=== PATIENT | male | born 1950 | race Native Hawaiian/Other Pacific Islander ===

== ENCOUNTER 2021-01-28 07:43 | Outpatient (CLI) | payer OTHER ==
[~2021-01-28] VITALS: Ht 177.8 cm; Wt 82.6 kg
== END 2021-01-28 19:27 | disposition home or self-care (01) ==
LOC: DIABINF 07:43
PROVIDERS: ATTEND Internal Medicine Endocrinology, Diabetes & Metabolism
DX: E11.40 Type 2 diabetes mellitus with diabetic neuropathy, unspecified (principal); N52.8 Other male erectile dysfunction; E78.2 Mixed hyperlipidemia; I10 Essential (primary) hypertension; E55.9 Vitamin D deficiency, unspecified; J30.2 Other seasonal allergic rhinitis
CPT/HCPCS: 82948; 96365; 96366; 96521; 99204; J1718; J1815

== ENCOUNTER 2021-01-29 07:33 | Outpatient (CLI) | payer OTHER ==
[~2021-01-29] VITALS: Ht 177.8 cm; Wt 82.6 kg
== END 2021-01-29 21:42 | disposition home or self-care (01) ==
LOC: DIABINF 07:33
PROVIDERS: ATTEND Internal Medicine Endocrinology, Diabetes & Metabolism
DX: E11.40 Type 2 diabetes mellitus with diabetic neuropathy, unspecified (principal); N52.8 Other male erectile dysfunction; E78.2 Mixed hyperlipidemia; I10 Essential (primary) hypertension; E55.9 Vitamin D deficiency, unspecified; J30.2 Other seasonal allergic rhinitis; C44.41 Basal cell carcinoma of skin of scalp and neck
CPT/HCPCS: 82948; 96365; 96366; 96521; 99214; J1718; J1815

== ENCOUNTER 2021-02-04 07:52 | Outpatient (CLI) | payer OTHER ==
[~2021-02-04] VITALS: Ht 177.8 cm; Wt 82.6 kg
== END 2021-02-04 22:03 | disposition home or self-care (01) ==
LOC: DIABINF 07:52
PROVIDERS: ATTEND Internal Medicine Endocrinology, Diabetes & Metabolism
DX: E11.40 Type 2 diabetes mellitus with diabetic neuropathy, unspecified (principal); E11.65 Type 2 diabetes mellitus with hyperglycemia; N52.8 Other male erectile dysfunction; E78.2 Mixed hyperlipidemia; I10 Essential (primary) hypertension; E55.9 Vitamin D deficiency, unspecified; J30.2 Other seasonal allergic rhinitis; C44.41 Basal cell carcinoma of skin of scalp and neck; S81.811D Laceration without foreign body, right lower leg, subsequent encounter
CPT/HCPCS: 82948; 96365; 96366; 96521; 99214; J1718; J1815

== ENCOUNTER 2021-02-05 07:53 | Outpatient (CLI) | payer OTHER ==
[~2021-02-05] VITALS: Ht 177.8 cm; Wt 82.6 kg
== END 2021-02-05 21:46 | disposition home or self-care (01) ==
LOC: DIABINF 07:53
PROVIDERS: ATTEND Internal Medicine Endocrinology, Diabetes & Metabolism
DX: E11.65 Type 2 diabetes mellitus with hyperglycemia (principal); N52.8 Other male erectile dysfunction; E78.2 Mixed hyperlipidemia; I10 Essential (primary) hypertension; E55.9 Vitamin D deficiency, unspecified; J30.2 Other seasonal allergic rhinitis; C44.41 Basal cell carcinoma of skin of scalp and neck; S81.811D Laceration without foreign body, right lower leg, subsequent encounter
CPT/HCPCS: 82948; 96365; 96366; 96521; 99214; J1718; J1815

== ENCOUNTER 2021-02-11 07:48 | Outpatient (CLI) | payer OTHER ==
[~2021-02-11] VITALS: Ht 177.8 cm; Wt 82.6 kg
== END 2021-02-11 21:52 | disposition home or self-care (01) ==
LOC: DIABINF 07:48
PROVIDERS: ATTEND Internal Medicine Endocrinology, Diabetes & Metabolism
DX: E11.40 Type 2 diabetes mellitus with diabetic neuropathy, unspecified (principal); N52.8 Other male erectile dysfunction; E78.2 Mixed hyperlipidemia; I10 Essential (primary) hypertension; E55.9 Vitamin D deficiency, unspecified; J30.2 Other seasonal allergic rhinitis; C44.41 Basal cell carcinoma of skin of scalp and neck; S80.811A Abrasion, right lower leg, initial encounter
CPT/HCPCS: 82948; 96365; 96366; 96521; 99214; J1718; J1815

== ENCOUNTER 2021-02-12 07:46 | Outpatient (CLI) | payer OTHER ==
[~2021-02-12] VITALS: Ht 177.8 cm; Wt 82.6 kg
== END 2021-02-12 19:29 | disposition home or self-care (01) ==
LOC: DIABINF 07:46
PROVIDERS: ATTEND Internal Medicine Endocrinology, Diabetes & Metabolism
DX: E11.21 Type 2 diabetes mellitus with diabetic nephropathy (principal); N52.8 Other male erectile dysfunction; E78.2 Mixed hyperlipidemia; I10 Essential (primary) hypertension; E55.9 Vitamin D deficiency, unspecified; J30.2 Other seasonal allergic rhinitis; C44.41 Basal cell carcinoma of skin of scalp and neck; S80.811A Abrasion, right lower leg, initial encounter
CPT/HCPCS: 82948; 96365; 96366; 96521; 99214; J1718; J1815

== ENCOUNTER 2021-02-19 07:33 | Outpatient (CLI) | payer OTHER ==
[~2021-02-19] VITALS: Ht 177.8 cm; Wt 82.6 kg
== END 2021-02-19 20:22 | disposition home or self-care (01) ==
LOC: DIABINF 07:33
PROVIDERS: ATTEND Internal Medicine Endocrinology, Diabetes & Metabolism
DX: E11.21 Type 2 diabetes mellitus with diabetic nephropathy (principal); N52.8 Other male erectile dysfunction; E78.2 Mixed hyperlipidemia; I10 Essential (primary) hypertension; E55.9 Vitamin D deficiency, unspecified; J30.2 Other seasonal allergic rhinitis; C44.41 Basal cell carcinoma of skin of scalp and neck; S80.811A Abrasion, right lower leg, initial encounter
CPT/HCPCS: 82948; 96365; 96366; 96521; 99214; J1718; J1815

== ENCOUNTER 2021-02-26 07:42 | Outpatient (CLI) | payer OTHER ==
[~2021-02-26] VITALS: Ht 177.8 cm; Wt 82.6 kg
== END 2021-02-26 22:10 | disposition home or self-care (01) ==
LOC: DIABINF 07:42
PROVIDERS: ATTEND Internal Medicine Endocrinology, Diabetes & Metabolism
DX: E11.40 Type 2 diabetes mellitus with diabetic neuropathy, unspecified (principal); N52.8 Other male erectile dysfunction; E78.2 Mixed hyperlipidemia; I10 Essential (primary) hypertension; E55.9 Vitamin D deficiency, unspecified; J30.2 Other seasonal allergic rhinitis; C44.41 Basal cell carcinoma of skin of scalp and neck; S80.811A Abrasion, right lower leg, initial encounter
CPT/HCPCS: 82948; 96365; 96366; 96521; 99214; J1718; J1815

== ENCOUNTER 2021-03-04 07:59 | Outpatient (CLI) | payer OTHER ==
[~2021-03-04] VITALS: Ht 177.8 cm; Wt 82.6 kg
== END 2021-03-04 21:29 | disposition home or self-care (01) ==
LOC: DIABINF 07:59
PROVIDERS: ATTEND Internal Medicine Endocrinology, Diabetes & Metabolism
DX: E11.21 Type 2 diabetes mellitus with diabetic nephropathy (principal); N52.8 Other male erectile dysfunction; E78.2 Mixed hyperlipidemia; I10 Essential (primary) hypertension; E55.9 Vitamin D deficiency, unspecified; J30.2 Other seasonal allergic rhinitis; C44.41 Basal cell carcinoma of skin of scalp and neck; S80.811A Abrasion, right lower leg, initial encounter
CPT/HCPCS: 82948; 96365; 96366; 96521; 99214; J1718; J1815

== ENCOUNTER 2021-03-11 07:58 | Outpatient (CLI) | payer OTHER ==
[~2021-03-11] VITALS: Ht 177.8 cm; Wt 84.8 kg
== END 2021-03-11 21:13 | disposition home or self-care (01) ==
LOC: DIABINF 07:58
PROVIDERS: ATTEND Internal Medicine Endocrinology, Diabetes & Metabolism
DX: E11.21 Type 2 diabetes mellitus with diabetic nephropathy (principal); N52.8 Other male erectile dysfunction; E78.2 Mixed hyperlipidemia; I10 Essential (primary) hypertension; E55.9 Vitamin D deficiency, unspecified; J30.2 Other seasonal allergic rhinitis; C44.41 Basal cell carcinoma of skin of scalp and neck; S80.811A Abrasion, right lower leg, initial encounter
CPT/HCPCS: 82948; 96365; 96366; 96521; 99214; J1718; J1815

== ENCOUNTER 2021-03-17 12:33 | Outpatient (CLI) | payer OTHER ==
[~2021-03-17] VITALS: Ht 177.8 cm; Wt 82.6 kg
== END 2021-03-17 20:29 | disposition home or self-care (01) ==
LOC: DIABINF 12:33
PROVIDERS: ATTEND Internal Medicine Endocrinology, Diabetes & Metabolism
DX: E11.40 Type 2 diabetes mellitus with diabetic neuropathy, unspecified (principal); N52.8 Other male erectile dysfunction; E78.2 Mixed hyperlipidemia; I10 Essential (primary) hypertension; E55.9 Vitamin D deficiency, unspecified; J30.2 Other seasonal allergic rhinitis; C44.41 Basal cell carcinoma of skin of scalp and neck; S80.811A Abrasion, right lower leg, initial encounter
CPT/HCPCS: 82948; 96365; 96366; 96521; 99214; J1718; J1815

== ENCOUNTER 2021-03-26 08:10 | Outpatient (CLI) | payer OTHER ==
[~2021-03-26] VITALS: Ht 177.8 cm; Wt 82.6 kg
== END 2021-03-26 20:23 | disposition home or self-care (01) ==
LOC: DIABINF 08:10
PROVIDERS: ATTEND Internal Medicine Endocrinology, Diabetes & Metabolism
DX: E11.40 Type 2 diabetes mellitus with diabetic neuropathy, unspecified (principal); N52.8 Other male erectile dysfunction; I10 Essential (primary) hypertension; E55.9 Vitamin D deficiency, unspecified; J30.2 Other seasonal allergic rhinitis; C44.41 Basal cell carcinoma of skin of scalp and neck; S80.811A Abrasion, right lower leg, initial encounter; E78.2 Mixed hyperlipidemia
CPT/HCPCS: 82948; 96365; 96366; 96521; J1815; J1817

== ENCOUNTER 2021-03-30 11:41 | Outpatient (CLI) | payer OTHER ==
[2021-03-30 12:22] LABS: POTASSIUM 4.5 mmol/L (3.6-5.2)
[2021-03-30 12:52] LABS: PLATELET COUNT 196 K/uL (142-355)
== END 2021-03-30 23:40 | disposition home or self-care (01) ==
LOC: LAB 11:41
PROVIDERS: ATTEND Internal Medicine Endocrinology, Diabetes & Metabolism
DX: Z00.00 Encounter for general adult medical examination without abnormal findings (principal); E11.40 Type 2 diabetes mellitus with diabetic neuropathy, unspecified; E78.2 Mixed hyperlipidemia; I10 Essential (primary) hypertension; E55.9 Vitamin D deficiency, unspecified
CPT/HCPCS: 80053; 80061; 83036; 85027

== ENCOUNTER 2021-04-02 08:07 | Outpatient (CLI) | payer OTHER ==
[~2021-04-02] VITALS: Ht 177.8 cm; Wt 82.6 kg
== END 2021-04-02 23:16 | disposition home or self-care (01) ==
LOC: DIABINF 08:07
PROVIDERS: ATTEND Internal Medicine Endocrinology, Diabetes & Metabolism
DX: E11.40 Type 2 diabetes mellitus with diabetic neuropathy, unspecified (principal); N52.8 Other male erectile dysfunction; E78.2 Mixed hyperlipidemia; I10 Essential (primary) hypertension; E55.9 Vitamin D deficiency, unspecified; J30.2 Other seasonal allergic rhinitis; C44.41 Basal cell carcinoma of skin of scalp and neck; S80.812D Abrasion, left lower leg, subsequent encounter
CPT/HCPCS: 82948; 96365; 96366; 96521; J1815; J1817

== ENCOUNTER 2021-04-09 07:42 | Outpatient (CLI) | payer OTHER ==
[~2021-04-09] VITALS: Ht 177.8 cm; Wt 83.9 kg
== END 2021-04-09 21:41 | disposition home or self-care (01) ==
LOC: DIABINF 07:42
PROVIDERS: ATTEND Internal Medicine Endocrinology, Diabetes & Metabolism
DX: E11.40 Type 2 diabetes mellitus with diabetic neuropathy, unspecified (principal); N52.8 Other male erectile dysfunction; E78.2 Mixed hyperlipidemia; I10 Essential (primary) hypertension; E55.9 Vitamin D deficiency, unspecified; J30.2 Other seasonal allergic rhinitis; C44.41 Basal cell carcinoma of skin of scalp and neck; S80.812D Abrasion, left lower leg, subsequent encounter
CPT/HCPCS: 82948; 96365; 96366; 96521; J1815; J1817

== ENCOUNTER 2021-04-16 07:54 | Outpatient (CLI) | payer OTHER ==
[~2021-04-16] VITALS: Ht 177.8 cm; Wt 83.9 kg
== END 2021-04-16 19:12 | disposition home or self-care (01) ==
LOC: DIABINF 07:54
PROVIDERS: ATTEND Internal Medicine Endocrinology, Diabetes & Metabolism
DX: E11.40 Type 2 diabetes mellitus with diabetic neuropathy, unspecified (principal); N52.8 Other male erectile dysfunction; E78.2 Mixed hyperlipidemia; I10 Essential (primary) hypertension; E55.9 Vitamin D deficiency, unspecified; J30.2 Other seasonal allergic rhinitis; C44.41 Basal cell carcinoma of skin of scalp and neck; S80.812D Abrasion, left lower leg, subsequent encounter
CPT/HCPCS: 82948; 96365; 96366; 96521; J1815; J1817

== ENCOUNTER 2021-04-22 07:41 | Outpatient (CLI) | payer OTHER ==
[~2021-04-22] VITALS: Ht 177.8 cm; Wt 83.9 kg
== END 2021-04-22 19:40 | disposition home or self-care (01) ==
LOC: DIABINF 07:41
PROVIDERS: ATTEND Internal Medicine Endocrinology, Diabetes & Metabolism
DX: E11.40 Type 2 diabetes mellitus with diabetic neuropathy, unspecified (principal); N52.8 Other male erectile dysfunction; E78.2 Mixed hyperlipidemia; I10 Essential (primary) hypertension; E55.9 Vitamin D deficiency, unspecified; J30.2 Other seasonal allergic rhinitis; C44.41 Basal cell carcinoma of skin of scalp and neck
CPT/HCPCS: 82948; 96365; 96366; 96521; J1815; J1817

== ENCOUNTER 2021-04-30 07:56 | Outpatient (CLI) | payer OTHER ==
[~2021-04-30] VITALS: Ht 177.8 cm; Wt 83.9 kg
== END 2021-04-30 22:39 | disposition home or self-care (01) ==
LOC: DIABINF 07:56
PROVIDERS: ATTEND Internal Medicine Endocrinology, Diabetes & Metabolism
DX: E11.40 Type 2 diabetes mellitus with diabetic neuropathy, unspecified (principal); N52.8 Other male erectile dysfunction; E78.2 Mixed hyperlipidemia; I10 Essential (primary) hypertension; E55.9 Vitamin D deficiency, unspecified; J30.2 Other seasonal allergic rhinitis; C44.41 Basal cell carcinoma of skin of scalp and neck
CPT/HCPCS: 82948; 96365; 96366; 96521; J1815; J1817

== ENCOUNTER 2021-05-07 07:47 | Outpatient (CLI) | payer OTHER ==
[~2021-05-07] VITALS: Ht 177.8 cm; Wt 83.9 kg
== END 2021-05-07 22:47 | disposition home or self-care (01) ==
LOC: DIABINF 07:47
PROVIDERS: ATTEND Internal Medicine Endocrinology, Diabetes & Metabolism
DX: E11.65 Type 2 diabetes mellitus with hyperglycemia (principal); E11.40 Type 2 diabetes mellitus with diabetic neuropathy, unspecified; I10 Essential (primary) hypertension; E78.2 Mixed hyperlipidemia; E55.9 Vitamin D deficiency, unspecified; J30.2 Other seasonal allergic rhinitis
CPT/HCPCS: 82948; 96365; 96366; 96521; J1815; J1817

== ENCOUNTER 2021-05-14 07:47 | Outpatient (CLI) | payer OTHER ==
[~2021-05-14] VITALS: Ht 177.8 cm; Wt 83.9 kg
== END 2021-05-14 11:30 | disposition home or self-care (01) ==
LOC: DIABINF 07:47
PROVIDERS: ATTEND Nurse Practitioner
DX: E11.65 Type 2 diabetes mellitus with hyperglycemia (principal); E11.40 Type 2 diabetes mellitus with diabetic neuropathy, unspecified; I10 Essential (primary) hypertension; E78.2 Mixed hyperlipidemia; E55.9 Vitamin D deficiency, unspecified; J30.2 Other seasonal allergic rhinitis
CPT/HCPCS: 82948; 96365; 96366; 96521; J1815; J1817

== ENCOUNTER 2021-05-21 07:43 | Outpatient (CLI) | payer OTHER ==
[~2021-05-21] VITALS: Ht 177.8 cm; Wt 83.9 kg
== END 2021-05-21 11:30 | disposition home or self-care (01) ==
LOC: DIABINF 07:43
PROVIDERS: ATTEND Internal Medicine Endocrinology, Diabetes & Metabolism
DX: E11.40 Type 2 diabetes mellitus with diabetic neuropathy, unspecified (principal); N52.8 Other male erectile dysfunction; E78.2 Mixed hyperlipidemia; I10 Essential (primary) hypertension; E55.9 Vitamin D deficiency, unspecified; J30.2 Other seasonal allergic rhinitis
CPT/HCPCS: 82948; 96365; 96366; 96521; J1815; J1817

== ENCOUNTER 2021-05-28 07:55 | Outpatient (CLI) | payer OTHER ==
[~2021-05-28] VITALS: Ht 177.8 cm; Wt 83.9 kg
== END 2021-05-28 19:41 | disposition home or self-care (01) ==
LOC: DIABINF 07:55
PROVIDERS: ATTEND Nurse Practitioner
DX: E11.40 Type 2 diabetes mellitus with diabetic neuropathy, unspecified (principal); N52.8 Other male erectile dysfunction; E78.2 Mixed hyperlipidemia; I10 Essential (primary) hypertension; E55.9 Vitamin D deficiency, unspecified; J30.2 Other seasonal allergic rhinitis
CPT/HCPCS: 82948; 96365; 96366; 96521; J1815; J1817

== ENCOUNTER 2021-06-04 07:50 | Outpatient (CLI) | payer OTHER ==
[~2021-06-04] VITALS: Ht 175.3 cm; Wt 117.9 kg
== END 2021-06-04 19:06 | disposition home or self-care (01) ==
LOC: DIABINF 07:50
PROVIDERS: ATTEND Nurse Practitioner
DX: E11.40 Type 2 diabetes mellitus with diabetic neuropathy, unspecified (principal); N52.8 Other male erectile dysfunction; E78.2 Mixed hyperlipidemia; I10 Essential (primary) hypertension; E55.9 Vitamin D deficiency, unspecified; J30.2 Other seasonal allergic rhinitis
CPT/HCPCS: 82948; 96365; 96366; 96521; J1815; J1817

== ENCOUNTER 2021-06-11 07:32 | Outpatient (CLI) | payer OTHER ==
[~2021-06-11] VITALS: Ht 177.8 cm; Wt 83.9 kg
== END 2021-06-11 20:58 | disposition home or self-care (01) ==
LOC: DIABINF 07:32
PROVIDERS: ATTEND Nurse Practitioner
DX: E11.40 Type 2 diabetes mellitus with diabetic neuropathy, unspecified (principal); N52.8 Other male erectile dysfunction; I10 Essential (primary) hypertension; E55.9 Vitamin D deficiency, unspecified; J30.2 Other seasonal allergic rhinitis
CPT/HCPCS: 82948; 96365; 96366; 96521; J1815; J1817

== ENCOUNTER 2021-06-17 07:43 | Outpatient (CLI) | payer OTHER ==
[~2021-06-17] VITALS: Ht 177.8 cm; Wt 83.9 kg
== END 2021-06-17 23:25 | disposition home or self-care (01) ==
LOC: DIABINF 07:43
PROVIDERS: ATTEND Nurse Practitioner
DX: E11.40 Type 2 diabetes mellitus with diabetic neuropathy, unspecified (principal); N52.8 Other male erectile dysfunction; I10 Essential (primary) hypertension; E55.9 Vitamin D deficiency, unspecified; J30.2 Other seasonal allergic rhinitis; C44.319 Basal cell carcinoma of skin of other parts of face
CPT/HCPCS: 82948; 96365; 96366; 96521; J1815; J1817

== ENCOUNTER 2021-06-25 07:47 | Outpatient (CLI) | payer OTHER ==
[~2021-06-25] VITALS: Ht 177.8 cm; Wt 83.9 kg
== END 2021-06-25 20:17 | disposition home or self-care (01) ==
LOC: DIABINF 07:47
PROVIDERS: ATTEND Nurse Practitioner
DX: E11.40 Type 2 diabetes mellitus with diabetic neuropathy, unspecified (principal); N52.8 Other male erectile dysfunction; I10 Essential (primary) hypertension; E55.9 Vitamin D deficiency, unspecified; J30.2 Other seasonal allergic rhinitis; C44.319 Basal cell carcinoma of skin of other parts of face
CPT/HCPCS: 82948; 96365; 96366; 96521; J1815; J1817

== ENCOUNTER 2021-07-02 07:48 | Outpatient (CLI) | payer OTHER ==
[~2021-07-02] VITALS: Ht 177.8 cm; Wt 83.9 kg
== END 2021-07-02 22:32 | disposition home or self-care (01) ==
LOC: DIABINF 07:48
PROVIDERS: ATTEND Nurse Practitioner
DX: E11.40 Type 2 diabetes mellitus with diabetic neuropathy, unspecified (principal); N52.8 Other male erectile dysfunction; I10 Essential (primary) hypertension; E55.9 Vitamin D deficiency, unspecified; J30.2 Other seasonal allergic rhinitis; C44.319 Basal cell carcinoma of skin of other parts of face
CPT/HCPCS: 82948; 96365; 96366; 96521; J1815; J1817

== ENCOUNTER 2021-07-09 07:49 | Outpatient (CLI) | payer OTHER ==
[~2021-07-09] VITALS: Ht 177.8 cm; Wt 83.9 kg
== END 2021-07-09 19:34 | disposition home or self-care (01) ==
LOC: DIABINF 07:49
PROVIDERS: ATTEND Nurse Practitioner
DX: E11.40 Type 2 diabetes mellitus with diabetic neuropathy, unspecified (principal); N52.8 Other male erectile dysfunction; I10 Essential (primary) hypertension; E55.9 Vitamin D deficiency, unspecified; J30.2 Other seasonal allergic rhinitis; C44.319 Basal cell carcinoma of skin of other parts of face
CPT/HCPCS: 82948; 96365; 96366; 96521; J1815; J1817

== ENCOUNTER 2021-07-16 07:47 | Outpatient (CLI) | payer OTHER | END 2021-07-16 20:03 | disposition home or self-care (01) | LOC: DIABINF 07:47 | PROVIDERS: ATTEND Nurse Practitioner | DX: E11.40 Type 2 diabetes mellitus with diabetic neuropathy, unspecified (principal); N52.8 Other male erectile dysfunction; I10 Essential (primary) hypertension; E55.9 Vitamin D deficiency, unspecified; J30.2 Other seasonal allergic rhinitis; C44.319 Basal cell carcinoma of skin of other parts of face | CPT/HCPCS: 82948; 96365; 96366; 96521; J1817 ==

== ENCOUNTER 2021-07-23 07:46 | Outpatient (CLI) | payer OTHER | END 2021-07-23 21:22 | disposition home or self-care (01) | LOC: DIABINF 07:46 | PROVIDERS: ATTEND Nurse Practitioner | DX: E11.40 Type 2 diabetes mellitus with diabetic neuropathy, unspecified (principal); N52.8 Other male erectile dysfunction; I10 Essential (primary) hypertension; E55.9 Vitamin D deficiency, unspecified; J30.2 Other seasonal allergic rhinitis; C44.319 Basal cell carcinoma of skin of other parts of face | CPT/HCPCS: 82948; 96365; 96366; 96521; J1817 ==